=== PATIENT | male | born 1995 | race Caucasian/White ===

== ENCOUNTER 2023-11-25 05:26 | Emergency (ER) | payer MEDICAID ==
[2023-11-25] MEDS: Ketorolac 60 MG/2 ML SDV IM ONE (06:00)
[2023-11-25] MEDS ORDERED: Acetaminophen/HYDROcodone 325-5 MG Tab ONE (06:00)
== END 2023-11-25 06:02 | disposition home or self-care (01) ==
LOC: LB.ED 05:26
DX: M25.572 Pain in left ankle and joints of left foot (principal); G89.29 Other chronic pain
CPT/HCPCS: 96372; 99283; A9270; J1885